=== PATIENT | female | born 1990 | race African-American/Black ===

== ENCOUNTER 2020-04-02 22:44 | Emergency (ER) | payer BC, MEDICAID ==
[~2020-04-02] VITALS: Ht 165.1 cm; Wt 118.0 kg
[2020-04-02 23:18] VITALS: BP 155/77
[2020-04-03] MEDS ORDERED: KETOROLAC 60MG/2ML VIAL IM STA (01:39)
[2020-04-03] MEDS ORDERED: HYDROCODONE/ACETAMINOPHEN 5/325MG TABLET PO STA (01:39)
== END 2020-04-03 02:48 | disposition home or self-care (01) ==
LOC: ER 22:44
DX: K08.89 Other specified disorders of teeth and supporting structures (principal); M06.9 Rheumatoid arthritis, unspecified; Z90.89 Acquired absence of other organs; Z98.890 Other specified postprocedural states; Z88.8 Allergy status to other drugs, medicaments and biological substances; Z88.0 Allergy status to penicillin
CPT/HCPCS: 81025; 96372; 99283; J1885